=== PATIENT | male | born 1960 | race Hispanic/Latino ===

== ENCOUNTER 2017-04-25 21:47 | Emergency (ER) | payer OTHER, SELFPAY ==
[2017-04-25] MEDS ORDERED: NITROGLYCERIN 0.4 MG 25 EA TAB SL ONE (21:54)
[2017-04-25] MEDS: NITROGLYCERIN 0.4 MG 25 EA TAB SL ONE ×2 (22:00→22:15)
--- NOTE | 2017-04-25 22:10 | ED.PDOC ---
History of Present Illness - General Chief Complaint: Chest Pain/[place] Stated Complaint: Chest pain Time Seen by Provider: 04/25/17 21:49 Source: patient, RN notes reviewed, Vital Signs reviewed Exam Limitations: no limitations - History of Present Illness Initial Comments: Patient comes in with c/o chest pain that started ~2 hours ago. Pain is substernal and burning in nature. Pain is 10/10. + SOB, nausea and diaphoresis. He had similar pain last night but it resolved with taking Ibuprofen. He had 3 coronary stents placed ~1 year ago. He then had an ablation for A. 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 Timing/Duration: 1-3 hours, intermittent Severity/Quality: severe, burning Location: substernal Chest Pain Radiation: no radiation Activities at Onset: rest Prior Chest Pain/Cardiac Workup: cardiac cath, other - Coronary stents X3, Ablation and Pacemaker Improving Factors: nothing Worsening Factors: nothing Nitro Today/Relief: 0.4 mg x 2, provided by ED, complete relief - pain improved from 10 to 08/25 Aspirin Treatment Today: no aspirin today - On Plavix Associated Symptoms: diaphoresis, heartburn, nausea/vomiting, shortness of breath Allergies/Adverse Reactions: Allergies NO KNOWN ALLERGY Allergy (Verified 04/25/17 22:12) Home Medications: Ambulatory Orders Apixaban [Eliquis] 5 mg PO BID 01/27/16 Amiodarone HCl 200 mg PO DAILY 06/04/16 Atorvastatin Calcium [Lipitor] 20 mg PO DAILY 06/04/16 Carvedilol 12.5 mg PO BID 06/04/16 Clopidogrel Bisulfate [Plavix] 75 mg PO QD 06/04/16 Pantoprazole Sodium [Protonix] 40 mg PO DAILY 06/04/16 Albuterol Inhaler [Ventolin Hfa Inhaler] 108 mcg IN PRN 04/25/17 Amlodipine Besylate 10 mg PO DAILY 04/25/17 LORazepam [Ativan] 0.5 mg PO TID PRN 04/25/17 Lisinopril 40 mg PO DAILY 04/25/17 Nitroglycerin 0.4 mg SL PRN 04/25/17 Tramadol HCl 50 mg PO Q6HR PRN 04/25/17 Review of Systems - Review of Systems Constitutional: States: diaphoresis. Denies: chills, fever, malaise Respiratory: States: short of breath Cardiology: States: chest pain. Denies: edema, palpitations, syncope Gastrointestinal/Abdominal: States: nausea. Denies: abdominal pain, vomiting Musculoskeletal: States: no symptoms reported Skin: States: no symptoms reported Neurological: States: no symptoms reported All other Systems: No Change from Baseline Past Medical History (General) - Patient Medical History Hx Seizures: No Hx Stroke: No Hx Dementia: No Hx Asthma: No Hx of COPD: No Hx Cardiac Disorders: Yes - A fib - does not take med secondary to expense of med (Eliquis) Hx Congestive Heart Failure: No Hx Pacemaker: No Hx Hypertension: Yes Hx Thyroid Disease: No Hx Diabetes: No Hx Gastroesophageal Reflux: No Hx Renal Disease: No Hx Cancer: No Hx of HIV: No Hx Hepatitis C: No Hx MRSA: No - Vaccination History Hx Tetanus, Diphtheria Vaccination: No Hx Influenza Vaccination: No Hx Pneumococcal Vaccination: No - Social History Hx Tobacco Use: No Hx Chewing Tobacco Use: No Hx Alcohol Use: No Hx Substance Use: No Hx Substance Use Treatment: No Hx Depression: Yes Hx Physical Abuse: No Hx Emotional Abuse: No Hx Suspected Abuse: No - Female History Patient : No Family Medical History - Family History Mother Family History: Unknown Living Status: Hx Family Hypertension: Yes Hx Cardiac Disease: Yes Hx Family Diabetes: Yes Hx Family;Other: Schizophrenia, depression Physical Exam - Physical Exam General Appearance: Alert, Ill Appearing, Obese, Well Developed, Well Groomed, Well Hydrated, Well Nourished Neck: supple, normal inspection Respiratory: lungs clear, normal breath sounds, no respiratory distress, no accessory muscle use Cardiovascular/Chest: normal peripheral pulses, regular rate, rhythm, no edema, no gallop, no murmur Peripheral Pulses: dorsalis pedis,right: 2+, dorsalis pedis,left: 2+ Gastrointestinal/Abdominal: normal bowel sounds, non tender, soft Extremity: non-tender, normal inspection, no pedal edema Neurologic: alert, normal mood/affect, oriented x 3 Skin Exam: diaphoresis Progress - Progress Progress: 04/25/17 22:25 CP now 08/25 after SLNTG X2. 04/26/17 00:47 Second set of cardiac enzymes are normal. He has remained pain free. He has SLNTG @ home. Will d/c home with instructions to call health safety manager in am and arrange follow up. - Results/Orders Results/Orders: Laboratory Tests 04/25/17 04/25/17 04/26/17 22:00 22:00 00:15 WBC 11.6 H RBC 4.56 L Hgb 14.3 Hct 42.1 MCV 92.5 MCH 31.3 H MCHC 33.9 RDW 13.7 Plt Count 257 MPV 7.3 L Absolute Neuts (auto) 7.90 H Absolute Lymphs (auto) 2.10 Absolute Monos (auto) 1.00 H Absolute Eos (auto) 0.60 H Absolute Basos (auto) 0.10 Neutrophils % 67.7 Lymphocytes % 17.8 L Monocytes % 9.0 Eosinophils % 5.0 Basophils % 0.5 Sodium 140 Potassium 4.2 Chloride 108 Carbon Dioxide 25 Anion Gap 11.2 L BUN 24 H Creatinine 0.78 BUN/Creatinine Ratio 30.8 H Random Glucose 154 H Serum Osmolality 286.5 Calcium 8.8 Total Bilirubin 0.5 AST 17 ALT 31 Alkaline Phosphatase 87 Creatine Kinase 57 50 CK-MB (CK-2) 0.7 0.6 CK-MB (CK-2) % Not Reportable Not Reportable Troponin I < 0.02 < 0.02 Serum Total Protein 7.6 Albumin 4.0 Globulin 3.6 H Albumin/Globulin Ratio 1.1 Amylase 52 Lipase 27 - EKG/XRAY/CT EKG: nonspecific ST T wave Chg, Changed from - 06/04/16 Comments: Wide QRS rhythm - paced. Rate 70 XRAY: chest - Cardiac enlargement w/ central pulm congestion. Johnnie inflitrates L> R. ? asymetric edema per Rad Departure - Departure Clinical Impression: Angina pectoris Time of Disposition: 00:48 Disposition: Discharge to Home or Self Care Condition: Good Departure Forms: ED Discharge - Pt. Copy, Patient Portal Self Enrollment Instructions: DI for Angina Diet: resume usual diet Activity: increase activity as tolerated Referrals: Ronald Bernard [Primary Care Provider] - 1-2 Weeks Home Medications: Ambulatory Orders Apixaban [Eliquis] 5 mg PO BID 01/27/16 Amiodarone HCl 200 mg PO DAILY 06/04/16 Atorvastatin Calcium [Lipitor] 20 mg PO DAILY 06/04/16 Carvedilol 12.5 mg PO BID 06/04/16 Clopidogrel Bisulfate [Plavix] 75 mg PO QD 06/04/16 Pantoprazole Sodium [Protonix] 40 mg PO DAILY 06/04/16 Albuterol Inhaler [Ventolin Hfa Inhaler] 108 mcg IN PRN 04/25/17 Amlodipine Besylate 10 mg PO DAILY 04/25/17 LORazepam [Ativan] 0.5 mg PO TID PRN 04/25/17 Lisinopril 40 mg PO DAILY 04/25/17 Nitroglycerin 0.4 mg SL PRN 04/25/17 Tramadol HCl 50 mg PO Q6HR PRN 04/25/17 Additional Instructions: Take Nitroglycerine as needed for chest pain Call Professional Development Instructor in morning and arrange follow up for this week Any new or worsening symptoms return to ER
[2017-04-25 22:13] VITALS: TEMP 98.8
--- NOTE | 2017-04-25 22:32 | RAD ---
EXAM DESCRIPTION: Chest,1 View CLINICAL HISTORY: 56 years Male chest pain COMPARISON: 06/04/2016 FINDINGS: Cardiac enlargement with central pulmonary vascular congestion. Pacemaker in place. There are infiltrates bilaterally in the lung bases left greater than right which may reflect pulmonary edema. Mild elevation the left hemidiaphragm. No evidence of pneumothorax. -Question small left effusion IMPRESSION: Cardiac enlargement with central pulmonary vascular congestion and bilateral pulmonary infiltrates worse in the left perihilar region and left lung base. Question asymmetric edema versus infiltrate. Favor the former Blunting of the left costophrenic angle which may reflect a small amount of fluid. Electronically signed by: Sonia Bales 04/25/2017 10:30 PM CDT
[2017-04-26 00:55] VITALS: BP 110/69; O2SAT 97
== END 2017-04-26 00:55 | disposition home or self-care (01) ==
LOC: ER 21:47
DX: I20.9 Angina pectoris, unspecified (principal); I10 Essential (primary) hypertension; I48.91 Unspecified atrial fibrillation; Z79.01 Long term (current) use of anticoagulants; Z79.02 Long term (current) use of antithrombotics/antiplatelets; Z98.61 Coronary angioplasty status

== ENCOUNTER 2017-05-20 18:44 | Emergency (ER) | payer OTHER ==
[2017-05-20 19:05] VITALS: TEMP 98.3
[2017-05-20] MEDS ORDERED: SODIUM CHLORIDE 0.65% NASAL SPRAY 45 ML BTTL BNAS PRN (19:26)
--- NOTE | 2017-05-20 19:52 | ED.PDOC ---
History of Present Illness - General Chief Complaint: ENT Problem Stated Complaint: nosebleed Time Seen by Provider: 05/20/17 19:10 Source: patient Exam Limitations: no limitations - History of Present Illness Initial Comments: The patient is a 56-year-old male presenting to the emergency room secondary to epistaxis 2 episodes. First episode was last night the second episode was this evening. He takes daily aspirin for his chronic sinusitis and does see ear nose and throat. No fevers. He does take eliquis. The nosebleed is hemostatic at this time. examination does show an excoriated area approximately 1-1/2 cm and along the nasal septum. It is hemostatic at this time. Timing/Duration: unsure Severity: mild Improving Factors: nothing Worsening Factors: nothing Associated Symptoms: denies symptoms Allergies/Adverse Reactions: Allergies NO KNOWN ALLERGY Allergy (Verified 05/20/17 19:16) Home Medications: Ambulatory Orders Apixaban [Eliquis] 5 mg PO BID 01/27/16 Amiodarone HCl 200 mg PO DAILY 06/04/16 Atorvastatin Calcium [Lipitor] 20 mg PO DAILY 06/04/16 Carvedilol 12.5 mg PO BID 06/04/16 Clopidogrel Bisulfate [Plavix] 75 mg PO QD 06/04/16 Pantoprazole Sodium [Protonix] 40 mg PO DAILY 06/04/16 Albuterol Inhaler [Ventolin Hfa Inhaler] 108 mcg IN PRN 04/25/17 Amlodipine Besylate 10 mg PO DAILY 04/25/17 LORazepam [Ativan] 0.5 mg PO TID PRN 04/25/17 Lisinopril 40 mg PO DAILY 04/25/17 Nitroglycerin 0.4 mg SL PRN 04/25/17 Tramadol HCl 50 mg PO Q6HR PRN 04/25/17 Review of Systems - Review of Systems Constitutional: States: no symptoms reported EENTM: States: see HPI Respiratory: States: no symptoms reported Cardiology: States: no symptoms reported Gastrointestinal/Abdominal: States: no symptoms reported Genitourinary: States: no symptoms reported Musculoskeletal: States: no symptoms reported Skin: States: no symptoms reported Neurological: States: no symptoms reported Endocrine: States: no symptoms reported All other Systems: No Change from Baseline Past Medical History (General) - Patient Medical History Hx Seizures: No Hx Stroke: No Hx Dementia: No Hx Asthma: No Hx of COPD: No Hx Cardiac Disorders: Yes - A fib - does not take med secondary to expense of med (Eliquis) Hx Congestive Heart Failure: No Hx Pacemaker: No Hx Hypertension: Yes Hx Thyroid Disease: No Hx Diabetes: No Hx Gastroesophageal Reflux: No Hx Renal Disease: No Hx Cancer: No Hx of HIV: No Hx Hepatitis C: No Hx MRSA: No Surgical History: pacemaker, other - Vaccination History Hx Tetanus, Diphtheria Vaccination: No Hx Influenza Vaccination: No Hx Pneumococcal Vaccination: Yes - Social History Hx Tobacco Use: No Hx Chewing Tobacco Use: No Hx Alcohol Use: Yes Hx Substance Use: No Hx Substance Use Treatment: No Hx Depression: Yes Hx Physical Abuse: No Hx Emotional Abuse: No Hx Suspected Abuse: No - Female History Patient : No Family Medical History - Family History Mother Family History: Unknown Living Status: Hx Family Hypertension: Yes Hx Cardiac Disease: Yes Hx Family Diabetes: Yes Hx Family;Other: Schizophrenia, depression Physical Exam - Physical Exam General Appearance: Alert, Comfortable, No apparent distress Eye Exam: bilateral normal Ears, Nose, Throat: hearing grossly normal, normal pharynx, other - see history of present illness Neck: full range of motion, supple Respiratory: lungs clear, normal breath sounds, no respiratory distress, no accessory muscle use Cardiovascular/Chest: normal peripheral pulses, no edema Peripheral Pulses: radial,right: 2+, radial,left: 2+ Extremity: normal inspection, normal capillary refill 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 He needs to hold eliquis for 3 days. He can use a small amount of Vaseline on his nasal septum on that side to help reduce irritation as well. He can also roll picker [place] nasal spray and spray 1 spray to each nostril 3 times daily. He needs to keep follow-up with ear nose and throat. ER warnings were given. avoid sleeping under a vent or under a ceiling fan. A humidifier at night may also help. Departure - Departure Clinical Impression: Epistaxis Disposition: Discharge to Home or Self Care Condition: Fair Departure Forms: ED Discharge - Pt. Copy, Patient Portal Self Enrollment Instructions: DI for Nosebleed Diet: regular diet Activity: increase activity as tolerated Referrals: Ronald Bernard [Primary Care Provider] - 1-2 Weeks Home Medications: Ambulatory Orders Apixaban [Eliquis] 5 mg PO BID 01/27/16 Amiodarone HCl 200 mg PO DAILY 06/04/16 Atorvastatin Calcium [Lipitor] 20 mg PO DAILY 06/04/16 Carvedilol 12.5 mg PO BID 06/04/16 Clopidogrel Bisulfate [Plavix] 75 mg PO QD 06/04/16 Pantoprazole Sodium [Protonix] 40 mg PO DAILY 06/04/16 Albuterol Inhaler [Ventolin Hfa Inhaler] 108 mcg IN PRN 04/25/17 Amlodipine Besylate 10 mg PO DAILY 04/25/17 LORazepam [Ativan] 0.5 mg PO TID PRN 04/25/17 Lisinopril 40 mg PO DAILY 04/25/17 Nitroglycerin 0.4 mg SL PRN 04/25/17 Tramadol HCl 50 mg PO Q6HR PRN 04/25/17 Additional Instructions: the patient is a 56-year-old male presenting with epistaxis from the right nares. He needs to hold eliquis for 3 days. He can use a small amount of Vaseline on his nasal septum on that side to help reduce irritation as well. He can also roll picker [place] nasal spray and spray 1 spray to each nostril 3 times daily. He needs to keep follow-up with ear nose and throat. ER warnings were given. avoid sleeping under a vent or under a ceiling fan. A humidifier at night may also help.
[2017-05-20 20:06] VITALS: BP 127/82; O2SAT 96
== END 2017-05-20 20:06 | disposition home or self-care (01) ==
LOC: ER 18:44
DX: R04.0 Epistaxis (principal); J32.9 Chronic sinusitis, unspecified; I48.91 Unspecified atrial fibrillation; I10 Essential (primary) hypertension; Z79.01 Long term (current) use of anticoagulants; Z79.82 Long term (current) use of aspirin

== ENCOUNTER 2017-05-26 10:56 | Emergency (ER) | payer OTHER ==
--- NOTE | 2017-05-26 11:29 | ED.PDOC ---
History of Present Illness - General Chief Complaint: ENT Problem Stated Complaint: nosebleed Time Seen by Provider: 05/26/17 11:06 Source: patient, RN notes reviewed, Vital Signs reviewed Exam Limitations: no limitations - History of Present Illness Initial Comments: Patient presents to the ER with a nose bleed that started ~1 hour ago. This is his 3rd nose bleed in the past 2.5 weeks. The first one was heavy but short and resolved on it's own. The second one was on 05/20/17 and he was seen here in the ER. Bleeding had stopped by the time he got back to a room. He was advised to hold his Eliquis for 3 days. He did so and restarted it this morning. He blew his nose this morning and the bleeding from his right nostril started again. Currently has slowed down but is still oozing. Timing/Duration: abrupt, this morning Severity: moderate EENT Location: nose Prearrival Treatment: squeezing nostrils Improving Factors: other - nasal pressure Worsening Factors: other - blowing nose Associated Symptoms: denies symptoms Allergies/Adverse Reactions: Allergies NO KNOWN ALLERGY Allergy (Verified 05/20/17 19:16) Home Medications: Ambulatory Orders Apixaban [Eliquis] 5 mg PO BID 01/27/16 Amiodarone HCl 200 mg PO DAILY 06/04/16 Atorvastatin Calcium [Lipitor] 20 mg PO DAILY 06/04/16 Carvedilol 12.5 mg PO BID 06/04/16 Clopidogrel Bisulfate [Plavix] 75 mg PO QD 06/04/16 Pantoprazole Sodium [Protonix] 40 mg PO DAILY 06/04/16 Amlodipine Besylate 10 mg PO DAILY 04/25/17 Lisinopril 40 mg PO DAILY 04/25/17 Review of Systems - Review of Systems Constitutional: States: no symptoms reported EENTM: States: see HPI Respiratory: States: no symptoms reported Cardiology: States: no symptoms reported Gastrointestinal/Abdominal: States: no symptoms reported Musculoskeletal: States: no symptoms reported Skin: States: no symptoms reported Hematologic/Lymphatic: States: see HPI, easy bleeding Past Medical History (General) - Patient Medical History Hx Seizures: No Hx Stroke: No Hx Dementia: No Hx Asthma: No Hx of COPD: No Hx Cardiac Disorders: Yes - A fib Hx Congestive Heart Failure: Yes Hx Pacemaker: Yes Hx Hypertension: Yes Hx Thyroid Disease: No Hx Diabetes: No Hx Gastroesophageal Reflux: No Hx Renal Disease: No Hx Cancer: No Hx of HIV: No Hx Hepatitis C: No Hx MRSA: No Surgical History: cholecystectomy, pacemaker - Vaccination History Hx Tetanus, Diphtheria Vaccination: No Hx Influenza Vaccination: No Hx Pneumococcal Vaccination: Yes - Social History Hx Tobacco Use: No Hx Chewing Tobacco Use: No Hx Alcohol Use: Yes Hx Substance Use: No Hx Substance Use Treatment: No Hx Depression: Yes Hx Physical Abuse: No Hx Emotional Abuse: No Hx Suspected Abuse: No - Female History Patient : No Family Medical History - Family History Mother Family History: Unknown Living Status: Hx Family Hypertension: Yes Hx Cardiac Disease: Yes Hx Family Diabetes: Yes Hx Family;Other: Schizophrenia, depression Physical Exam - Physical Exam General Appearance: Alert, Comfortable, No apparent distress, Well Developed, Well Groomed, Well Hydrated, Well Nourished Nasal Exam: active bleeding - minimal bleeding from R nare with fresh blood in both nares. Neck: supple, normal inspection Cardiovascular/Respiratory: no respiratory distress Neurologic: alert, normal mood/affect, oriented x 3 Skin Exam: normal color, warm/dry Progress - Progress Progress: 05/26/17 11:31 Nasal clamp placed on nose. 05/26/17 13:26 Patient still bleeding despite clamping and Rhino Rocket placement. Spoke with his ENT's office in [place] who recommended sending patient to [facility] for evaluation and management. Patient is agreeable with plan. 05/26/17 13:[address] Carrizales @ [facility] ER Procedures - Additional Procedures Progress: Rhino-Rocket placed in R nare w/o difficulty. Patient tolerated well. Departure - Departure Clinical Impression: Epistaxis Time of Disposition: 13:40 Disposition: Transfer to Hospital Condition: Good Departure Forms: ED Discharge - Pt. Copy, Patient Portal Self Enrollment Referrals: Ronald Bernard [Primary Care Provider] - 1-2 Weeks Home Medications: Ambulatory Orders Apixaban [Eliquis] 5 mg PO BID 01/27/16 Amiodarone HCl 200 mg PO DAILY 06/04/16 Atorvastatin Calcium [Lipitor] 20 mg PO DAILY 06/04/16 Carvedilol 12.5 mg PO BID 06/04/16 Clopidogrel Bisulfate [Plavix] 75 mg PO QD 06/04/16 Pantoprazole Sodium [Protonix] 40 mg PO DAILY 06/04/16 Amlodipine Besylate 10 mg PO DAILY 04/25/17 Lisinopril 40 mg PO DAILY 04/25/17 Transfer to Outside Facility - Transfer Information Accepting Provider:: Dr. Carrizales - [place] Accepting Facility: [facility] Reason for Transfer: required specialist not available
[2017-05-26 14:17] VITALS: BP 135/94; TEMP 95.9; O2SAT 95
== END 2017-05-26 14:16 | disposition short-term general hospital (02) ==
LOC: ER 10:56
DX: R04.0 Epistaxis (principal); I48.91 Unspecified atrial fibrillation; I11.0 Hypertensive heart disease with heart failure; I50.9 Heart failure, unspecified; Z95.0 Presence of cardiac pacemaker

== ENCOUNTER 2017-05-29 07:18 | Emergency (ER) | payer OTHER ==
[2017-05-29] MEDS ORDERED: OXYMETAZOLINE NASAL SPRAY 15 ML BTTL ONE (07:44)
[2017-05-29 07:47] VITALS: BP 123/91; TEMP 96.5; O2SAT 97
--- NOTE | 2017-05-29 08:00 | ED.PDOC ---
History of Present Illness - General Chief Complaint: ENT Problem Time Seen by Provider: 05/29/17 07:57 Source: patient Exam Limitations: no limitations - History of Present Illness Initial Comments: the patient is a 56-year-old male presenting back to the emergency room for removal of his right-sided Rhino Rocket. The patient was seen here on Wednesday and actually transferred to [facility] for ENT evaluation. He apparently did not receive ENT evaluation but the epistaxis did stop with the packing. He was told to come back here today for removal of the Rhino Rocket. He has had no further bleeding. He does take 2 very potent blood thinners which have been on hold. Timing/Duration: unsure Severity: mild Improving Factors: nothing Worsening Factors: nothing Associated Symptoms: denies symptoms Allergies/Adverse Reactions: Allergies NO KNOWN ALLERGY Allergy (Verified 05/20/17 19:16) Home Medications: Ambulatory Orders Apixaban [Eliquis] 5 mg PO BID 01/27/16 Amiodarone HCl 200 mg PO DAILY 06/04/16 Atorvastatin Calcium [Lipitor] 20 mg PO DAILY 06/04/16 Carvedilol 12.5 mg PO BID 06/04/16 Clopidogrel Bisulfate [Plavix] 75 mg PO QD 06/04/16 Pantoprazole Sodium [Protonix] 40 mg PO DAILY 06/04/16 Amlodipine Besylate 10 mg PO DAILY 04/25/17 Lisinopril 40 mg PO DAILY 04/25/17 Review of Systems - Review of Systems Constitutional: States: no symptoms reported EENTM: States: see HPI Respiratory: States: no symptoms reported Cardiology: States: no symptoms reported Gastrointestinal/Abdominal: States: no symptoms reported Genitourinary: States: no symptoms reported Musculoskeletal: States: no symptoms reported Skin: States: no symptoms reported Neurological: States: no symptoms reported Endocrine: States: no symptoms reported Hematologic/Lymphatic: States: no symptoms reported All other Systems: No Change from Baseline Past Medical History (General) - Patient Medical History Hx Seizures: No Hx Stroke: No Hx Dementia: No Hx Asthma: No Hx of COPD: No Hx Cardiac Disorders: Yes - A fib Hx Congestive Heart Failure: Yes Hx Pacemaker: Yes Hx Hypertension: Yes Hx Thyroid Disease: No Hx Diabetes: No Hx Gastroesophageal Reflux: No Hx Renal Disease: No Hx Cancer: No Hx of HIV: No Hx Hepatitis C: No Hx MRSA: No - Vaccination History Hx Tetanus, Diphtheria Vaccination: No Hx Influenza Vaccination: No Hx Pneumococcal Vaccination: Yes - Social History Hx Tobacco Use: No Hx Chewing Tobacco Use: No Hx Alcohol Use: Yes Hx Substance Use: No Hx Substance Use Treatment: No Hx Depression: Yes Hx Physical Abuse: No Hx Emotional Abuse: No Hx Suspected Abuse: No - Female History Patient : No Family Medical History - Family History Mother Family History: Unknown Living Status: Hx Family Hypertension: Yes Hx Cardiac Disease: Yes Hx Family Diabetes: Yes Hx Family;Other: Schizophrenia, depression Physical Exam - Physical Exam General Appearance: Alert, Comfortable, No apparent distress Eye Exam: bilateral normal Ears, Nose, Throat: hearing grossly normal, other - after Rhino Rocket is removed from the right nares he does have an abraded area to the septum on the right that is hemostatic at this time. 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 Afrin nasal spray was used to soak the packing. Air was removed from the Rhino Rocket. The Rhino Rocket was removed. The patient appears to be hemostatic at this time. He needs to obtain some [place] nasal spray and spray it up that nostril at least every 1-2 hours for the next few days. He needs to hold his eliquis for the next day or 2. ER warnings were given. He needs to not sleep under a fan or vent. Departure - Departure Clinical Impression: Epistaxis Disposition: Discharge to Home or Self Care Condition: Fair Departure Forms: ED Discharge - Pt. Copy, Patient Portal Self Enrollment Diet: regular diet Activity: increase activity as tolerated Referrals: Ronald Bernard [Primary Care Provider] - 1-2 Weeks Home Medications: Ambulatory Orders Apixaban [Eliquis] 5 mg PO BID 01/27/16 Amiodarone HCl 200 mg PO DAILY 06/04/16 Atorvastatin Calcium [Lipitor] 20 mg PO DAILY 06/04/16 Carvedilol 12.5 mg PO BID 06/04/16 Clopidogrel Bisulfate [Plavix] 75 mg PO QD 06/04/16 Pantoprazole Sodium [Protonix] 40 mg PO DAILY 06/04/16 Amlodipine Besylate 10 mg PO DAILY 04/25/17 Lisinopril 40 mg PO DAILY 04/25/17 Additional Instructions: the patient is a 56-year-old male presenting to the emergency room for removal of his nasal packing on the right due to an episode of epistaxis that occurred 4 days ago. Afrin nasal spray was used to soak the packing. Air was removed from the Rhino Rocket. The Rhino Rocket was removed. The patient appears to be hemostatic at this time. He needs to obtain some [place] nasal spray and spray it up that nostril at least every 1-2 hours for the next few days. He needs to hold his eliquis for the next day or 2. ER warnings were given. He needs to not sleep under a fan or vent.
== END 2017-05-29 08:06 | disposition home or self-care (01) ==
LOC: ER 07:18
DX: R04.0 Epistaxis (principal); Z79.01 Long term (current) use of anticoagulants; I11.0 Hypertensive heart disease with heart failure; I50.9 Heart failure, unspecified; I48.91 Unspecified atrial fibrillation

== ENCOUNTER 2017-09-15 02:40 | Emergency (ER) | payer SELFPAY ==
[2017-09-15] MEDS ORDERED: WATER FOR INJ 10 ML VIAL INJ ONE (02:50)
[2017-09-15 02:58] VITALS: TEMP 98.2; O2SAT 98
--- NOTE | 2017-09-15 03:09 | ED.PDOC ---
History of Present Illness - General Chief Complaint: ENT Problem Stated Complaint: nose bleeding Time Seen by Provider: 09/15/17 02:43 Source: patient Exam Limitations: no limitations - History of Present Illness Initial Comments: Nirav Trent 56 y/o male stated he blew his nose tonight then had sudden onset of nosebleed on his right nostril which did not quit with nose pressure for several minutes.Takes Eliquis and Plavix for a.fib Had previous episode in the past and nasal packing applied. Timing/Duration: abrupt Severity: moderate EENT Location: nose Prearrival Treatment: squeezing nostrils Presenting Symptoms: nosebleed Improving Factors: nothing Worsening Factors: nothing Associated Symptoms: nasal congestion/drainage Allergies/Adverse Reactions: Allergies NO KNOWN ALLERGY Allergy (Verified 05/20/17 19:16) Home Medications: Ambulatory Orders Apixaban [Eliquis] 5 mg PO BID 01/27/16 Amiodarone HCl 200 mg PO DAILY 06/04/16 Atorvastatin Calcium [Lipitor] 20 mg PO DAILY 06/04/16 Carvedilol 12.5 mg PO BID 06/04/16 Clopidogrel Bisulfate [Plavix] 75 mg PO QD 06/04/16 Pantoprazole Sodium [Protonix] 40 mg PO DAILY 06/04/16 Amlodipine Besylate 10 mg PO DAILY 04/25/17 Lisinopril 40 mg PO DAILY 04/25/17 Review of Systems - Review of Systems Constitutional: States: no symptoms reported EENTM: States: see HPI, nose congestion, other - nosebleed Respiratory: States: no symptoms reported Cardiology: States: no symptoms reported Gastrointestinal/Abdominal: States: no symptoms reported All other Systems: Reviewed and Negative, No Change from Baseline Past Medical History (General) - Patient Medical History Hx Seizures: No Hx Stroke: No Hx Dementia: No Hx Asthma: No Hx of COPD: No Hx Cardiac Disorders: Yes - A fib Hx Congestive Heart Failure: Yes Hx Pacemaker: Yes Hx Hypertension: Yes Hx Thyroid Disease: No Hx Diabetes: No Hx Gastroesophageal Reflux: No Hx Renal Disease: No Hx Cancer: No Hx of HIV: No Hx Hepatitis C: No Hx MRSA: No Surgical History: pacemaker, other - ablation cardiac - Vaccination History Hx Tetanus, Diphtheria Vaccination: No Hx Influenza Vaccination: No Hx Pneumococcal Vaccination: Yes - Social History Hx Tobacco Use: No Hx Chewing Tobacco Use: No Hx Alcohol Use: Yes Hx Substance Use: No Hx Substance Use Treatment: No Hx Depression: Yes Hx Physical Abuse: No Hx Emotional Abuse: No Hx Suspected Abuse: No - Female History Patient : No Family Medical History - Family History Mother Family History: Unknown Living Status: Hx Family Hypertension: Yes Hx Cardiac Disease: Yes Hx Family Diabetes: Yes Hx Family;Other: Schizophrenia, depression Physical Exam - Physical Exam General Appearance: Alert, Comfortable, No apparent distress Eye Exam: bilateral normal Ear Exam: bilateral ear: auricle normal, canal normal, TM normal Nasal Exam: active bleeding - right nostril Throat Exam: normal mouth inspection, pharynx normal Neck: non-tender, supple Cardiovascular/Respiratory: regular rate, rhythm, no M/R/G, normal peripheral pulses, no JVD, normal breath sounds Abdominal Exam: non-tender, no organomegaly Neurologic: alert, oriented x 3 Skin Exam: normal color, warm/dry Progress - Progress Progress: 09/15/17 03:17 Last Vital Signs Temp 98.2 F 09/15/17 02:53 Pulse 70 09/15/17 02:53 Resp 22 09/15/17 02:53 BP 155/100 09/15/17 02:53 Pulse Ox 98 09/15/17 02:53 09/15/17 04:11 Patient felt the nose bleed has stopped after the packing and observation Procedures - Additional Procedures Progress: Nasal packing right nostril done with rhino pack-anterior/posterior pack Departure - Departure Clinical Impression: Epistaxis Time of Disposition: 04:12 Disposition: Discharge to Home or Self Care Departure Forms: ED Discharge - Pt. Copy, Patient Portal Self Enrollment Instructions: DI for Nosebleed, Nosebleed Referrals: Ronald Bernard [Primary Care Provider] - 1-2 Weeks Home Medications: Ambulatory Orders Apixaban [Eliquis] 5 mg PO BID 01/27/16 Amiodarone HCl 200 mg PO DAILY 06/04/16 Atorvastatin Calcium [Lipitor] 20 mg PO DAILY 06/04/16 Carvedilol 12.5 mg PO BID 06/04/16 Clopidogrel Bisulfate [Plavix] 75 mg PO QD 06/04/16 Pantoprazole Sodium [Protonix] 40 mg PO DAILY 06/04/16 Amlodipine Besylate 10 mg PO DAILY 04/25/17 Lisinopril 40 mg PO DAILY 04/25/17 Additional Instructions: Need to call up your ENT specialist and senior engineering manager regarding your blood thinners in am 09/15/2017
[2017-09-15 04:24] VITALS: BP 112/73
== END 2017-09-15 04:24 | disposition home or self-care (01) ==
LOC: ER 02:40
DX: R04.0 Epistaxis (principal); I48.91 Unspecified atrial fibrillation; I11.0 Hypertensive heart disease with heart failure; I50.9 Heart failure, unspecified; Z95.0 Presence of cardiac pacemaker; Z79.02 Long term (current) use of antithrombotics/antiplatelets; Z79.01 Long term (current) use of anticoagulants

== ENCOUNTER 2017-09-25 02:50 | Emergency (ER) | payer SELFPAY ==
[2017-09-25 03:00] VITALS: TEMP 97.6
[2017-09-25] MEDS ORDERED: IPRATROPIUM/ALBUTEROL 3 ML VIAL NEB ONE (03:06)
[2017-09-25 03:17] VITALS: O2SAT 100
--- NOTE | 2017-09-25 03:31 | ED.PDOC ---
History of Present Illness - General Chief Complaint: Respiratory Problem Time Seen by Provider: 09/25/17 03:29 Source: patient Exam Limitations: no limitations Additional Information: 57 YEAR OLD PRESENTS WITH COMPLAINTS OF PRODUCTIVE COUGH ( GREEN YELLOW ) WHEEZING AND DIFFICULTY BREATHING - History of Present Illness Timing/Duration: 24 hours Severity: mild Improving Factors: nothing Worsening Factors: nothing Associated Symptoms: cough, shortness of breath Allergies/Adverse Reactions: Allergies NO KNOWN ALLERGY Allergy (Verified 09/25/17 03:27) Home Medications: Ambulatory Orders Apixaban [Eliquis] 5 mg PO BID 01/27/16 Amiodarone HCl 200 mg PO DAILY 06/04/16 Atorvastatin Calcium [Lipitor] 20 mg PO DAILY 06/04/16 Carvedilol 12.5 mg PO BID 06/04/16 Clopidogrel Bisulfate [Plavix] 75 mg PO QD 06/04/16 Pantoprazole Sodium [Protonix] 40 mg PO DAILY 06/04/16 Amlodipine Besylate 10 mg PO DAILY 04/25/17 Lisinopril 40 mg PO DAILY 04/25/17 Albuterol Inhaler [Ventolin Hfa Inhaler] 1 puff INH Q6HRS #1 inh 09/25/17 Azithromycin [Zithromax Z-Ronni] 1 ea PO DAILY #1 pack 09/25/17 Methylprednisolone [Medrol Dose Ronni] 4 mg PO Q24HR #28 tab 09/25/17 Review of Systems - Review of Systems Constitutional: States: no symptoms reported EENTM: States: no symptoms reported Respiratory: States: cough, short of breath Cardiology: States: no symptoms reported Gastrointestinal/Abdominal: States: no symptoms reported Genitourinary: States: no symptoms reported Musculoskeletal: States: no symptoms reported Skin: States: no symptoms reported Neurological: States: no symptoms reported Endocrine: States: no symptoms reported Hematologic/Lymphatic: States: no symptoms reported Past Medical History (General) - Patient Medical History Hx Seizures: No Hx Stroke: No Hx Dementia: No Hx Asthma: No Hx of COPD: No Hx Cardiac Disorders: Yes - A fib Hx Congestive Heart Failure: Yes Hx Pacemaker: Yes Hx Hypertension: Yes Hx Thyroid Disease: No Hx Diabetes: No Hx Gastroesophageal Reflux: No Hx Renal Disease: No Hx Cancer: No Hx of HIV: No Hx Hepatitis C: No Hx MRSA: No Surgical History: angioplasty, pacemaker, other - Vaccination History Hx Tetanus, Diphtheria Vaccination: No Hx Influenza Vaccination: No Hx Pneumococcal Vaccination: Yes - Social History Hx Tobacco Use: No Hx Chewing Tobacco Use: No Hx Alcohol Use: Yes - stopped last few months Hx Substance Use: No Hx Substance Use Treatment: No Hx Depression: Yes Feels Threatened In Home Enviroment: No Feels Threatened In a Relationship: No Hx Physical Abuse: No Hx Emotional Abuse: No Hx Suspected Abuse: No - Activities of Daily Living Hospice Agency (if applicable):: None - Female History Patient is a Female of Child Bearing Age (10 -59 yrs old): No Patient : No - Triage Comment ED Triage Comment: pt alert, speaking in complete sentences with no resp distress noted Family Medical History - Family History Mother Family History: Unknown Living Status: Hx Family Hypertension: Yes Hx Cardiac Disease: Yes Hx Family Diabetes: Yes Hx Family;Other: Schizophrenia, depression Physical Exam - Physical Exam General Appearance: Alert, Comfortable Eye Exam: bilateral normal Ears, Nose, Throat: hearing grossly normal, normal ENT inspection, normal pharynx Neck: non-tender, full range of motion, supple Respiratory: chest non-tender, lungs clear, normal breath sounds, no respiratory distress, no accessory muscle use Cardiovascular/Chest: normal peripheral pulses, regular rate, rhythm, no edema, no gallop Gastrointestinal/Abdominal: normal bowel sounds, non tender, soft Back Exam: normal inspection, no CVA tenderness Neurologic: normal mood/affect, oriented x 3 DTR: 4+: Biceps, left, Biceps, right, Triceps, left, Triceps, right, Brachioradialis, left, Brachioradialis, right Skin Exam: normal color Lymphatic: no adenopathy Departure - Departure Clinical Impression: Acute asthma, Bronchitis Time of Disposition: 03:33 Disposition: Discharge to Home or Self Care Condition: Good Departure Forms: ED Discharge - Pt. Copy, Patient Portal Self Enrollment Diet: resume usual diet Activity: walking as tolerated Referrals: Ronald Bernard [Primary Care Provider] - 1-2 Weeks Prescriptions: Albuterol Inhaler [Ventolin Hfa Inhaler] 1 puff INH Q6HRS #1 inh Methylprednisolone [Medrol Dose Ornni] 4 mg PO Q24HR #28 tab Azithromycin [Zithromax Z-Ronni] 1 ea PO DAILY #1 pack Home Medications: Ambulatory Orders Apixaban [Eliquis] 5 mg PO BID 01/27/16 Amiodarone HCl 200 mg PO DAILY 06/04/16 Atorvastatin Calcium [Lipitor] 20 mg PO DAILY 06/04/16 Carvedilol 12.5 mg PO BID 06/04/16 Clopidogrel Bisulfate [Plavix] 75 mg PO QD 06/04/16 Pantoprazole Sodium [Protonix] 40 mg PO DAILY 06/04/16 Amlodipine Besylate 10 mg PO DAILY 04/25/17 Lisinopril 40 mg PO DAILY 04/25/17 Albuterol Inhaler [Ventolin Hfa Inhaler] 1 puff INH Q6HRS #1 inh 09/25/17 Azithromycin [Zithromax Z-Ronni] 1 ea PO DAILY #1 pack 09/25/17 Methylprednisolone [Medrol Dose Ronni] 4 mg PO Q24HR #28 tab 09/25/17
[2017-09-25 03:44] VITALS: BP 148/88
== END 2017-09-25 03:44 | disposition home or self-care (01) ==
LOC: ER 02:50
DX: J45.909 Unspecified asthma, uncomplicated (principal); J40 Bronchitis, not specified as acute or chronic; I48.91 Unspecified atrial fibrillation; I11.0 Hypertensive heart disease with heart failure; I50.9 Heart failure, unspecified; Z95.0 Presence of cardiac pacemaker; Z79.02 Long term (current) use of antithrombotics/antiplatelets; Z98.61 Coronary angioplasty status; Z79.01 Long term (current) use of anticoagulants; Z79.899 Other long term (current) drug therapy
CPT/HCPCS: 94640; J7620